=== PATIENT | male | born 1980 | race Caucasian/White ===

== ENCOUNTER 2016-07-14 23:47 | Emergency (ER) | payer MEDICAID ==
[~2016-07-14] VITALS: Ht 188 cm; Wt 74.5 kg
[~2016-07-14 23:47] MED LIST: NONE PER PT
[2016-07-15 01:16] LABS: ASPARTATE AMINO TRANSFERASE 16 U/L (15-37); BLOOD UREA NITROGEN 16 mg/dL (7-18)
[2016-07-15 01:18] LABS: ACETAMINOPHEN < 2 mcg/mL (10-30)
[2016-07-15 02:53] VITALS: BP 124/79
[2016-07-15 03:23] LABS: DAU SCREEN DISCLAIMER
== END 2016-07-15 02:55 | disposition home or self-care (01) ==
LOC: ED 07-15 02:53
DX: S62.325A Displaced fracture of shaft of fourth metacarpal bone, left hand, initial encounter for closed fracture (principal); F17.200 Nicotine dependence, unspecified, uncomplicated; W22.01XA Walked into wall, initial encounter; Y93.89 Activity, other specified; Y92.89 Other specified places as the place of occurrence of the external cause; Y99.8 Other external cause status; Z88.6 Allergy status to analgesic agent; Z88.8 Allergy status to other drugs, medicaments and biological substances
CPT/HCPCS: 29105; 29125; 36415; 80053; 80307; 80329; 81003; 85025; G0480

== ENCOUNTER 2016-07-17 16:31 | Emergency (ER) | payer MEDICAID ==
[~2016-07-17] VITALS: Ht 188 cm; Wt 72.9 kg
[2016-07-17 16:35] VITALS: BP 146/90
== END 2016-07-17 18:32 | disposition home or self-care (01) ==
LOC: ED 17:04
DX: S62.324A Displaced fracture of shaft of fourth metacarpal bone, right hand, initial encounter for closed fracture (principal); W22.01XA Walked into wall, initial encounter; Y93.89 Activity, other specified; Y92.89 Other specified places as the place of occurrence of the external cause; Y99.8 Other external cause status
CPT/HCPCS: 29125

== ENCOUNTER 2016-07-20 07:39 | Day surgery (SDC) | payer MEDICAID ==
[~2016-07-20] VITALS: Ht 188 cm; Wt 73.0 kg
[2016-07-20 08:28] VITALS: BP 133/90
[2016-07-20] MEDS ORDERED: LACTATED RINGERS 1,000 ML IV SCH (08:32)
[2016-07-20] MEDS ORDERED: TRAM50TA2 PO (08:33)
[2016-07-20] MEDS ORDERED: FENTANYL PF 250 MCG/5ML ONE (08:52)
[2016-07-20] MEDS ORDERED: MIDAZOLAM 1 MG/ML, 2ML ONE (08:53)
[2016-07-20] MEDS ORDERED: PROPOFOL 10 MG/ML, 20ML ONE (09:50)
[2016-07-20] MEDS ORDERED: DEXAMETHASONE 4 MG/ML, 1ML ONE (09:50)
[2016-07-20] MEDS ORDERED: ONDANSETRON 2MG/ML, 2ML ONE (09:50)
[2016-07-20] MEDS ORDERED: CEFAZOLIN 1,000 MG ONE (09:50)
[2016-07-20] MEDS ORDERED: NEOSPORIN OINT, 15GM ONE (09:53)
[2016-07-20] MEDS ORDERED: BUPIVACAINE/PF-EPI 0.5% 1:200K ONE (09:53)
[2016-07-20] MEDS ORDERED: OXYcodone 5 MG/5 ML ORAL.SOL UDC PO PRN (10:00)
[2016-07-20] MEDS ORDERED: HYDROmorphone 1 MG/ML, 1ML IV PRN (10:00)
[2016-07-20] MEDS ORDERED: ACETAMINOPHEN 325 MG TABLET PO PRN (10:00)
[2016-07-20] MEDS ORDERED: ONDANSETRON 2MG/ML, 2ML IVPush PRN (10:00)
[2016-07-20] MEDS ORDERED: MIDAZOLAM 1 MG/ML, 2ML IV PRN (10:00)
[2016-07-20] MEDS ORDERED: ACETAMINOPHEN 650 MG/20.3 ML UDC ONE (10:11)
[2016-07-20] MEDS ORDERED: FENTANYL PF 100 MCG/2ML ONE (10:11)
[2016-07-20] MEDS ORDERED: ACETAMINOPHEN 325 MG TABLET ONE (10:11)
[2016-07-20] MEDS ORDERED: OXYcodone 5 MG/5 ML ORAL.SOL UDC ONE (10:12)
[2016-07-20] MEDS: FENTANYL PF 100 MCG/2ML IV PRN ×3 (10:25→10:50)
[2016-07-20] MEDS ORDERED: HYDROmorphone 2 MG/ML, 1ML ONE (10:41)
== END 2016-07-20 11:40 ==
LOC: OUT 07:39
PROVIDERS: ATTEND Orthopaedic Surgery
DX: S62.304A Unspecified fracture of fourth metacarpal bone, right hand, initial encounter for closed fracture (principal); F17.210 Nicotine dependence, cigarettes, uncomplicated; Z72.89 Other problems related to lifestyle; X58.XXXA Exposure to other specified factors, initial encounter; Y93.9 Activity, unspecified; Y92.9 Unspecified place or not applicable; Y99.9 Unspecified external cause status
CPT/HCPCS: 26615; 73120; 76000; C1713; J0690; J1100; J1170; J2250; J2405; J2704; J3010; J7120

== ENCOUNTER 2016-11-05 15:35 | Emergency (ER) | payer MEDICAID ==
[~2016-11-05] VITALS: Ht 188 cm; Wt 70.3 kg
[~2016-11-05 15:35] MED LIST changes: +TRAM50TA2 PO
[2016-11-05 15:39] VITALS: BP 151/110
[2016-11-05] MEDS ORDERED: LIDOCAINE 1%-EPI 1:100K, 20ML INFIL ONE (16:30)
[2016-11-05] MEDS ORDERED: SODIUM CHLORIDE 0.9% 1,000ML IVBOLUS ONE (16:30)
[2016-11-05] MEDS ORDERED: SODIUM CHLORIDE FLUSH 10ML SYR IVF ONE (16:30)
== END 2016-11-05 17:50 | disposition left against medical advice (07) ==
LOC: ED 17:40
DX: S61.215A Laceration without foreign body of left ring finger without damage to nail, initial encounter (principal); S00.03XA Contusion of scalp, initial encounter; I10 Essential (primary) hypertension; W01.0XXA Fall on same level from slipping, tripping and stumbling without subsequent striking against object, initial encounter; Y93.89 Activity, other specified; Y99.8 Other external cause status; Y92.099 Unspecified place in other non-institutional residence as the place of occurrence of the external cause
CPT/HCPCS: 12001; 70450; 99284

== ENCOUNTER 2016-12-20 17:11 | Emergency (ER) | payer MEDICAID ==
[~2016-12-20] VITALS: Ht 188 cm; Wt 71.8 kg
[2016-12-20 17:24] VITALS: BP 147/93
[2016-12-20] MEDS ORDERED: LIDOCAINE 1%, 20ML ONE (17:44)
[2016-12-20] MEDS: LIDOCAINE 1%, 20ML SQ ONE ×2 (18:56→18:59)
== END 2016-12-20 19:13 | disposition home or self-care (01) ==
LOC: ED 18:32
DX: L02.413 Cutaneous abscess of right upper limb (principal); I10 Essential (primary) hypertension; F32.9 Major depressive disorder, single episode, unspecified; Z87.820 Personal history of traumatic brain injury
CPT/HCPCS: 10060; 99283; J3490

== ENCOUNTER 2017-02-02 17:43 | Emergency (ER) | payer MEDICAID ==
[2017-02-02] MEDS ORDERED: SODIUM CHLORIDE FLUSH 10ML SYR IVF ONE (18:00)
[2017-02-02] MEDS ORDERED: SODIUM CHLORIDE 0.9% 1,000ML IVBOLUS ONE (18:00)
[2017-02-02] MEDS ORDERED: NAPR500T PO (18:06)
[2017-02-02] MEDS ORDERED: AMOX1TAB64 PO (18:06)
[2017-02-02 18:21] VITALS: BP 157/109
== END 2017-02-02 18:23 | disposition short-term general hospital (02) ==
LOC: ED 17:52
DX: S31.119A Laceration without foreign body of abdominal wall, unspecified quadrant without penetration into peritoneal cavity, initial encounter (principal); Y92.009 Unspecified place in unspecified non-institutional (private) residence as the place of occurrence of the external cause; Y93.89 Activity, other specified; Y99.8 Other external cause status; W26.9XXA Contact with unspecified sharp object(s), initial encounter
CPT/HCPCS: 71010; 96360; 99291; J7030

== ENCOUNTER 2017-10-01 17:51 | Emergency (ER) | payer MEDICAID ==
[~2017-10-01] VITALS: Ht 188 cm; Wt 73.2 kg
[~2017-10-01 17:51] MED LIST changes: +AMOX1TAB64 PO; +NAPR-856 PO
[2017-10-01 18:07] VITALS: BP 142/83
[2017-10-01] MEDS ORDERED: BACITRACIN ZINC OINT 500U/GM, 0.9 GM ONE (18:42)
[2017-10-01] MEDS ORDERED: DIPH,PERTUSS(ACELL),TET VAC/PF 0.5 ML IM-VACC ONE ×2 (18:58→19:00)
[2017-10-01] MEDS ORDERED: SODIUM CHLORIDE 0.9% 1,000ML IVBOLUS ONE (19:30)
[2017-10-01] MEDS ORDERED: AMPICILLIN/SULBACTAM 3 GM in SODIUM CHLORIDE 0.9% 100 ML IVPB ONE (19:30)
[2017-10-01] MEDS ORDERED: SODIUM CHLORIDE FLUSH 10ML SYR IVF ONE (19:30)
[2017-10-01 19:40] LABS: BASOPHILS # (AUTO) 0.04 x10^3/uL (0-0.1); BASOPHILS % (AUTO) 1 % (0-1); EOSINOPHILS # (AUTO) 0.24 x10^3/uL (0-0.4); EOSINOPHILS % (AUTO) 4 % (1-7); LYMPHOCYTES # (AUTO) 1.24 x10^3/uL (1-3.4); LYMPHOCYTES % (AUTO) 20 % (22-44); MD NO; MEAN CORPUSCULAR HEMOGLOBIN 33.3 pg (27.5-34.5); MEAN CORPUSCULAR HGB CONC 34.4 g/dL (33.2-36.2); MEAN PLATELET VOLUME 8.9 fL (7.4-10.4); MONOCYTES % (AUTO) 10 % (2-9); NEUTROPHILS # (AUTO) 4.15 x10^3/uL (1.8-6.8); NEUTROPHILS % (AUTO) 66 % (42-75); PLATELET COUNT 224 x10^3/uL (130-400); RED BLOOD COUNT 4.08 x10^6/uL (4.38-5.82); RED CELL DISTRIBUTION WIDTH 13.1 % (9.4-14.8)
[2017-10-01 19:48] LABS: ALANINE AMINOTRANSFERASE 24 U/L (12-78); ALBUMIN 3.6 g/dL (3.4-5.0); ANION GAP 8 mmol/L (5-15); CALCIUM 8.3 mg/dL (8.5-10.1); CHLORIDE 110 mmol/L (98-107); CREATININE 0.92 mg/dL (0.7-1.3)
[2017-10-01 19:51] LABS: ALKALINE PHOSPHATASE 59 U/L (45-117); BILIRUBIN,TOTAL 0.4 mg/dL (0.2-1.0); TOTAL PROTEIN 6.2 g/dL (6.4-8.2)
[2017-10-01] MEDS ORDERED: [UNRECOGNIZED DRUG - REMARK] PO (22:06)
[2017-10-01] MEDS ORDERED: CARB200T PO (22:06)
[2017-10-01] MEDS ORDERED: TRAZ50TA18 PO (22:06)
== END 2017-10-01 22:35 | disposition left against medical advice (07) ==
LOC: ED 19:36 → UNDOADMIN 20:21 → EDIP 20:21 → 4NOR 22:01 → EDIP 22:01 → ED 22:35 → UNDODISIN 22:35
DX: S62.102A Fracture of unspecified carpal bone, left wrist, initial encounter for closed fracture (principal); S62.325B Displaced fracture of shaft of fourth metacarpal bone, left hand, initial encounter for open fracture; S62.317B Displaced fracture of base of fifth metacarpal bone, left hand, initial encounter for open fracture; S16.1XXA Strain of muscle, fascia and tendon at neck level, initial encounter; S09.90XA Unspecified injury of head, initial encounter; F17.200 Nicotine dependence, unspecified, uncomplicated; Y04.0XXA Assault by unarmed brawl or fight, initial encounter; Y93.89 Activity, other specified; Y92.410 Unspecified street and highway as the place of occurrence of the external cause; Y99.8 Other external cause status
CPT/HCPCS: 29125; 36415; 70450; 71101; 72125; 73080; 73110; 73130; 80053; 85025; 87040; 90471; 90715; 96365; 99285; J0295; J7030